=== PATIENT | female | born 1975 | race Caucasian/White ===

== ENCOUNTER → 2016-10-10 | Outpatient (CLI) | payer MEDICAID ==
[~2016-10-10] MED LIST: AMOXICILLIN500 M2 PO; ASPIR 8181 MG PO; AUGMENTIN1 TA2 PO; AZITHROMYCIN250 MG PO; BACTRIM DS 8001 TA1 PO; BACTRIM DS 8001 TAB PO; CIPRO 250MG TA250 MG PO; DAILY VITE1 TA2 PO; DARVOCET-N 1001 EACH PO; FELDENE10 MG PO; HYDROCODON-ACETAMINO OR; IMITREX 25MG TA25 MG PO; KEFLEX 500MG.500 MG PO; LORTAB 5/500 501 TAB PO; MEDROL 4MG. DOSE4 MG PO; NAPROSYN 500MG500 MG PO; NAPROXEN SODIU500 MG PO; NOMEDS XX; NORCO 325 MG-51 TAB PO; PERMETHRIN60 ML TP; PREDNISONE 20MG20 MG PO; PREDNISONE20 MG PO; PROVENTIL0.09 MG/A1 IH; TESSALON PERLE100 M1 PO; TESSALON PERLE100 MG PO; TOPAMAX25 MG PO; VISTARIL25 M1 PO; VOLTAREN 25MG T25 MG OR; ZITHROMAX 250M250 MG PO; ZITHROMAX Z-PA250 M1 PO
--- NOTE | 2016-10-11 07:58 | RADIOLOGY REPORT PS360 ---
US PELVIS-TRANSVAGINAL ONLY HISTORY: PELVIC PAIN,RT OVARIAN CYST ORDERING PHYSICIAN: Richie Olguin MD PATIENT AGE: 41 years COMPARISON: None FINDINGS: The uterus is 9.8 x 5.5 x 5.7 cm. There is some fluid present in the endometrial canal which is nonspecific. Endometrium is slightly thickened at 10 mm. No uterine mass evident. The right ovary is 3.2 x 2.3 cm and contains multiple small follicles and a dominant cyst measuring up to 1.8 cm. blood flow is present. Left ovary is been removed per history. IMPRESSION: 1. Small amount fluid within endometrial canal with endometrial thickness upper limits of normal. 2. Small right ovarian cyst of 1.8 cm
== END ==
LOC: RAD 14:45
DX: R10.2 Pelvic and perineal pain (principal); N83.201 Unspecified ovarian cyst, right side

== ENCOUNTER → 2017-01-22 | Outpatient (CLI) | payer MEDICAID ==
[~2017-01-22] MED LIST changes: +DILAUDID4 MG PO; +KEFLEX500 M1 PO; +MULTI-DAY VITA1 EACH PO; +NAPROSYN500 M1 PO; +PERCOCET 5/3251 EACH PO
[2017-01-22 19:27] LABS: HEMOGLOBIN 10.3 g/dL (12.2-16.2); LYMPH # 1.9 K/mm3 (0.7-4.5)
[2017-01-22 21:35] LABS: BUN 9 mg/dL (7-18)
[2017-01-22 21:59] LABS: GFR (ESTIMATED) 80 ML/MIN (59-)
[2017-01-24 09:38] LABS: Vitamin D, 25-Hydroxy 26.1 ng/mL (30.0-100.0)
[2017-01-24 10:39] LABS: Folate (Folic Acid) 5.5 ng/mL (>3.0)
== END ==
LOC: LAB 18:18
PROVIDERS: Physician Assistant
DX: R63.0 Anorexia (principal)

== ENCOUNTER 2017-03-02 21:48 | Emergency (ER) | payer MEDICAID ==
[~2017-03-02] VITALS: Ht 162.6 cm; Wt 74.4 kg
[2017-03-02] MEDS ORDERED: IMITREX50 MG PO (22:08)
--- NOTE | 2017-03-02 22:14 | Emergency Room Report ---
History of Present Illness Time Seen by [id number] Presenting Problem in Triage Pt arrived:Walked Presenting Problem:SEVERE GRAF, HX OF MIGRAINES, TOOK TOPAMAX AND IMITREX WITH NO RELIEF. 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 N Clinical Suspician of Infection? N Mental Status: 1 - Regular (Normal Baseline) Sepsis Risk:Low Sepsis Risk Have you (or family members/close friends) recently traveled outside the [place]? N If Yes, where/when: Have you had exposure to infectious disease within the past month? N TB? Other? Specify: Source patient, RN notes reviewed, family, old records Exam Limitations no limitations Comment pt with acute excerbation of graf- pt with hx of migraines - no fever or trauma and no rash Cardiac Chest Pain Chest pain indicative of cardiac No Timing/Duration this evening Severity moderate ALLERGIES Coded Allergies: No Known Allergies (11/10/16) Home Medications Reported Medications Topiramate (Topamax) 25 MG PO PRN PRN . Sumatriptan Succinate (Imitrex) 50 MG PO BID Multivitamin (Multi-Day Vitamins) 1 EACH PO DAILY History Medical History General CAD? No Angina: No NH: No Hypertension? No Hyperlipidemia? No CHF? No DVT? No PE? No COPD? No Asthma? No Anemia? No GERD? No Gastric ulcers? No GI Bleed? No Hernia? Yes Thyroid Problems? No Hypothyroidism? No CVA? No Seizures? No Diabetes? No Renal Insuffiency? No End Stage Renal Disease? No UTI? Yes Stones? No BPH? No GB Disease: Yes Nephritic Syndrome? No Asplenia? No Hepatitis? No Sickle Cell Disease? No Arthritis? No Migraines? Yes Cataracts? No Glaucoma? No MRSA? Yes HIV? No TB? No Anxiety? No Depression? No Cancer? No More? 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 Respiratory denies cough, denies shortness of breath, denies wheezing Cardiovascular denies chest pain, denies palpitations, denies syncope Gastrointestinal see HPI, nausea, vomiting Genitourinary denies: dysuria, frequency, hesitancy. Musculoskeletal denies joint pain, denies joint swelling Skin denies rash Psychiatric/Neurological see HPI, headache, denies seizure Physical Exam Vital Signs Vital Signs Date Time Temp Pulse Resp B/P Pulse O2 O2 Flow FiO2 Ox Delivery Rate 03/02 2337 71 15 119/79 99 03/02 2255 16 03/02 2208 98.0 79 18 124/85 96 - WBC >12,000 or <4,000 or 10% bands? 2 or more SIRS Criteria Met? B/P:119/79 MAP:98 Creatinine >2.0? UA output<0.5ml/kg/hr for 2 hrs? Platelet count >100,000? Lactate >2.0mmol/1? INR >1.2 or PTT > than 60 sec? Evidence of Organ Dysfunction? Provider documented clinical suspician of infection? N Sepsis Criteria Count: 0 Sepsis Risk: Low Sepsis Risk General Appearance no apparent distress Eye Exam - bilateral eye PERRL, bilateral eye EOMI Ear, Nose, Throat normal ENT inspection Neck supple Respiratory Status No: respiratory distress. 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 No Results/Orders Laboratory Tests 03/02/17 2230: Sodium 136, Potassium 3.5, Chloride 102, Carbon Dioxide 27, BUN 7, Creatinine 0.9, Estimated Creat Clear 97, Estimated GFR (MDRD) 69, Glucose 97, Calcium 9.1, Total Bilirubin 0.4, AST 15, ALT 21, Alkaline Phosphatase 93, Total Protein 7.7, Albumin 3.7, Globulin 4.0 H, Albumin/Globulin Ratio 0.9 L, WBC 9.7, RBC 4.43, Hgb 11.6 L, Hct 35.9 L, MCV 81.1 L, RDW 14.1, Plt Count 364, MPV 8.1, Gran % 69.8, Gran # 6.7, Lymphocytes % 24.0, Monocytes % 4.5, Eosinophils % 1.5, Basophils % 0.3, Lymphocytes # 2.3, Monocytes # 0.4, Eosinophils # 0.1, Basophils # 0.0, PUBS MCHC 32.2, MCH 26.1 L Current Medication Orders Sig/Frandy Start time Last Medication Dose Route Stop Time Status Admin Promethazine HCl 0 .STK-MED ONE 03/02 2251 DC .ROUTE Sodium Chloride 25 ML .STK-MED ONE 03/02 2251 DC IV Diphenhydramine HCl 0 .STK-MED ONE 03/02 2250 DC .ROUTE Ketorolac 0 .STK-MED ONE 03/02 2250 DC Tromethamine .ROUTE Diphenhydramine HCl 25 MG ONCE ONE 03/02 2215 DC 03/02 IV 03/02 Ketorolac 30 MG ONCE ONE 03/02 2215 DC 03/02 Tromethamine IV 03/02 Promethazine HCl 12.5 MG ONCE ONE 03/02 2215 DC 03/02 IV 03/02 2216 225 Sodium Chloride 10 ML PRN PRN 03/02 2215 AC IV 03/03 2211 Sodium Chloride 1,000 ML .Q1H1M 03/02 2215 DC 03/02 IV 03/02 2315 2255 Sodium Chloride 10 ML PRN PRN 03/02 2215 AC IV 03/03 2211 Sodium Chloride 25 ML ONCE ONE 03/02 2215 DC 03/02 IV 03/02 2229 2256 Orders Procedure Date/time Status IV SALINE LOCK 03/02 2211 Active CBC WITH AUTO DIFF 03/02 2211 Complete CHEM 12 PROFILE 03/02 2211 Complete Progress ED Progress Notes Date 03/02/17 Time 2358 Comment better Departure Departure Time of Disposition 2359 Disposition DC Home or Self Care(routine) Clinical Impression Primary Impression: Migraine Qualifiers: Migraine type: without aura Status migrainosus presence: without status migrainosus Intractability: intractable Qualified Code: G43.019 - Migraine without aura, intractable, without status migrainosus Condition STABLE Referrals Destinee SINGLETON,Zak Stephens (Family) Patient Instructions DI for Migraine Additional Instructions see pcp for follow up Discharge Counseling Counseled pt/family regarding diagnosis, follow up needs ED Critical Care Critical Care No at 0000
[2017-03-02 22:53] LABS: LYMPH # 2.3 K/mm3 (0.7-4.5)
[2017-03-02 22:57] LABS: HEMOGLOBIN 11.6 g/dL (12.2-16.2)
[2017-03-03 00:06] VITALS: BP 119/79
== END 2017-03-03 00:07 | disposition home or self-care (01) ==
LOC: ER 21:48
PROVIDERS: Emergency Medicine
DX: G43.019 Migraine without aura, intractable, without status migrainosus (principal)

== ENCOUNTER → 2017-03-09 | Outpatient (CLI) | payer MEDICAID ==
--- NOTE | 2017-03-09 15:01 | RADIOLOGY REPORT PS360 ---
DIG MAMM-DX JUAN W/CAD, US BREAST-LT COMPLETE W/AXILLA, US BREAST-RT COMPLETE W/AXILLA COMPARISON: 04/07/2016, 07/27/2015, bilateral breast ultrasound of 10/19/2015 INDICATION: Breast pain, prior breast surgery ORDERING PHYSICIAN: DEBBIE GALDAMEZ MD PATIENT AGE: 42 years TECHNIQUE: Standard images performed with bilateral spot compression views and bilateral breast ultrasound FINDINGS: Dense fibroglandular tissue is noted bilaterally with bilateral parenchymal distortion from the previous breast surgery. Multiple surgical clips are present. There was some asymmetric density in the retroareolar region on the right. This however decreased on the nipple profile image. No malignant appearing mass or malignant appearing microcalcification is evident Right breast ultrasound: There are few scattered small cysts. No suspicious abnormalities are noted. Left breast ultrasound: 5 mm cyst in the retroareolar region. No suspicious abnormalities. IMPRESSION: Benign findings. No evidence of malignancy. BI-RADS CATEGORY: 2_Benign RECOMMENDED FOLLOWUP: Routine screening mammogram as well as correlation with physical exam. (A letter has been sent to the patient regarding results of the study.)
== END ==
LOC: RAD 12:36
DX: N64.4 Mastodynia (principal); N60.12 Diffuse cystic mastopathy of left breast; N60.11 Diffuse cystic mastopathy of right breast

== ENCOUNTER 2017-03-30 07:35 | Day surgery (SDC) | payer MEDICAID ==
[~2017-03-30 07:35] MED LIST changes: +IMITREX50 MG PO
--- NOTE | 2017-03-30 09:17 | Operative Note ---
Surgeon/Diagnoses Surgeon/Sander Hand(s) Date of procedure: 03/30/17 Surgeon: MD Tianna Galdamez Diagnoses Pre-op diagnosis: 1.5 cm painful LEFT upper extremity lipoma Post-op diagnosis Same Procedure Procedure Procedure: Excision of 1.5 cm lipoma from LEFT upper extremity Indications: LAKESHIA TENA is a 42 year-old Female with a history of painful lipoma of the LEFT upper extremity. Findings: Complex lipomatous lesion in subcutaneous tissue (not approaching fascial margin ) Procedure Description: After informed consent was obtained, the patient was taken to the procedure room. Her LEFT arm was prepped and draped in a sterile fashion. After infiltration with local anesthetic an incision was made overlying the lesion. A combination of sharp dissection was scalpel and dissection with hemostat was utilized to free the nodular/complex lipomatous lesion from the subcutaneous tissue. The lesion did not encroach upon the fascial margin. The lesion was carefully excised and passed off for pathologic evaluation. Compression was utilized to achieve hemostasis. 6-0 nylon was utilized to reapproximate the skin in a sterile dressing was applied. The patient was transferred recovery in stable condition. EBL (ml): 5 Anesthesia: 1 percent lidocaine Complications: No immediate Specimens: 1.5 cm LEFT upper extremity lipoma Disposition Disposition: Stable to recovery from where she will be discharged home. She will follow-up next week. at 0916
[2017-03-30 11:54] VITALS: BP 137/80
== END 2017-03-30 09:20 | disposition home or self-care (01) ==
LOC: SDC 07:35
PROVIDERS: Surgery
PROC: 0HBEXZZ Excision of Left Lower Arm Skin, External Approach (ICD-10-PCS; principal; 2017-03-30 10:30)
DX: D17.22 Benign lipomatous neoplasm of skin and subcutaneous tissue of left arm (principal); M79.602 Pain in left arm

== ENCOUNTER 2017-05-11 13:21 | Day surgery (SDC) | payer MEDICAID ==
--- NOTE | 2017-05-11 14:49 | Operative Note ---
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 She recently had excision of a separate LEFT upper extremity lipoma and no presents with an additional painful lesion. Findings: Lesion excised in toto. No pathologic evaluation as per patient wishes. Procedure Description: After informed consent was obtained, the patient was taken to the procedure room. Her LEFT upper extremity was prepped and draped in a sterile fashion. After infiltration with local anesthetic a curvilinear incision was made over the lesion (along the line of the patient's tattoo). The underlying tissue was dissected and a 1 cm lipomatous lesion was easily excised. Skin was closed with 6-0 nylon in an interrupted fashion. Dressings were applied and the patient was transferred to recovery in stable condition. EBL (ml): 5 Anesthesia: 1 percent lidocaine Complications: No immediate Specimens: 1 cm lipoma (not sent for pathologic evaluation per patient wishes) Disposition Disposition: Stable to recovery from where she will be discharged home. She will follow-up in one week. at [id number]
[2017-05-11 15:06] VITALS: BP 118/74
== END 2017-05-11 14:45 | disposition home or self-care (01) ==
LOC: SDC 13:21
PROVIDERS: Surgery
PROC: 0JBF0ZZ Excision of Left Upper Arm Subcutaneous Tissue and Fascia, Open Approach (ICD-10-PCS; principal; 2017-05-11 12:30)
DX: D17.22 Benign lipomatous neoplasm of skin and subcutaneous tissue of left arm (principal); M79.622 Pain in left upper arm